=== PATIENT | female | born 1990 | race Caucasian/White ===

== ENCOUNTER → 2020-04-24 22:45 | Observation (INO) | END | disposition home or self-care (01) | LOC: 1NENULAB | PROVIDERS: ADMIT Obstetrics & Gynecology; ATTEND Obstetrics & Gynecology ==

== ENCOUNTER 2022-05-14 03:57 | Inpatient (IN) ==
[2022-05-14] MEDS ORDERED: Penicillin G Potassium 5,000,000 UNIT in 0.9 % Sodium Chloride Mini Bag 100 ML IVPB ONE (04:40)
[2022-05-14] MEDS ORDERED: Ringers Solution, Lactated 1,000 ML IVC SCH (04:45)
[2022-05-14] MEDS ORDERED: Ondansetron 4 MG/2 ML VIAL IVP PRN (04:56)
[2022-05-14] MEDS ORDERED: Metoclopramide 10 MG/2 ML VIAL IVP PRN (04:56)
[2022-05-14] MEDS ORDERED: Famotidine 20 MG/2 ML VIAL IVP PRN (04:56)
[2022-05-14] MEDS ORDERED: Naloxone 0.4 MG/ML INJ IVP PRN (04:56)
[2022-05-14 05:35] LABS: Amphetamine Screen,Urine Negative ng/mL (Cutoff=1000); Barbiturate Screen,Urine Negative ng/mL (Cutoff=200); Benzodiazepines Screen,Urine Negative ng/mL (Cutoff=200); Cannabinoid Screen,Urine Negative ng/mL (Cutoff = 50); Cocaine Screen,Urine Negative ng/mL (Cutoff= 300); Opiate Screen,Urine Negative ng/mL (Cutoff=300); Phencyclidine Screen,Urine Negative ng/mL (Cutoff=25)
[2022-05-14 05:45] LABS: White Blood Count 8.3 K/mcL (4.3-11.1)
[2022-05-14 05:46] LABS: Basophils % 0.4 %; Eosinophils % 0.4 %; Hematocrit 34.7 % (35.3-44.9); Hemoglobin 11.1 g/dL (11.5-15.4); Immature Granulocytes % 0.4 % (0-4); Lymphocytes # 2.1 K/mcL (0.6-4.6); Mean Corpuscular Hemoglobin 25.3 pg (28.0-33.3); Mean Corpuscular Volume 79.2 fL (83.0-100.0); Mean Platelet Volume 11.4 fL (9.4-12.4); Monocytes # 0.3 K/mcL (0.0-1.3); Neutrophils # 5.9 K/mcL (1.6-8.9); Platelet Count 251 K/mcL (140-400); Red Blood Count 4.38 M/mcL (3.82-4.97); Segmented Neutrophils % 70.8 %
[2022-05-14] MEDS ORDERED: Oxytocin 30 UNIT/503 ML BAG IVC SCH ×2 (07:30→15:40)
[2022-05-14] MEDS ORDERED: Penicillin G Potassium 2,500,000 UNIT/105 ML MLS IVPB SCH (09:00)
[2022-05-14] MEDS ORDERED: EPHEDrine 50 MG/ML VIAL IVP PRN (09:46)
[2022-05-14] MEDS ORDERED: *HR* FentaNYL (PF) 100 MCG/2 ML VIAL EP ONE (09:46)
[2022-05-14] MEDS ORDERED: Ropivacaine/PF 0.2% 20 ML VIAL EP ONE (09:46)
[2022-05-14] MEDS ORDERED: Ropivacaine/PF 0.2% 20 ML VIAL ONE (09:49)
[2022-05-14] MEDS ORDERED: *HR* FentaNYL (PF) 100 MCG/2 ML VIAL ONE (09:49)
[2022-05-14] MEDS ORDERED: Epidural Premix (fent/bupiv) 110 ML EP SCH (10:00)
[2022-05-14] MEDS ORDERED: Lanolin 7 G OINT...G. TP PRN (15:40)
[2022-05-14] MEDS ORDERED: Ondansetron ODT 4 MG TAB.RAPDIS SL PRN (15:40)
[2022-05-14] MEDS ORDERED: Benzocaine/Menthol 56 GM AEROSOL SPRAY TP PRN (15:40)
[2022-05-14] MEDS ORDERED: Measles/Mumps/Rubella Vacc 0.5 ML VIAL SQ PRN (15:40)
[2022-05-14] MEDS: Acetaminophen 325 MG TABLET PO SCH (21:32)
[2022-05-14] MEDS: Ibuprofen 600 MG TABLET PO SCH (21:32)
[2022-05-14 21:50] VITALS: O2SAT 99
[2022-05-15] MEDS: Acetaminophen 325 MG TABLET PO SCH (03:23)
[2022-05-15] MEDS: Ibuprofen 600 MG TABLET PO SCH (03:23)
[2022-05-15 03:52] LABS: Basophils % 0.4 %; Eosinophils # 0.1 K/mcL (0.0-0.6); Eosinophils % 0.8 %; Hematocrit 32.5 % (35.3-44.9); Hemoglobin 10.4 g/dL (11.5-15.4); Immature Granulocytes % 0.4 % (0-4); Lymphocytes # 2.8 K/mcL (0.6-4.6); Lymphocytes % 31.4 %; Mean Corpuscular Hemoglobin 25.5 pg (28.0-33.3); Mean Corpuscular Volume 79.7 fL (83.0-100.0); Mean Platelet Volume 11.2 fL (9.4-12.4); Monocytes # 0.3 K/mcL (0.0-1.3); Monocytes % 3.8 %; Neutrophils # 5.6 K/mcL (1.6-8.9); Platelet Count 232 K/mcL (140-400); Red Blood Count 4.08 M/mcL (3.82-4.97); Red Cell Distribution Width 13.3 % (11.5-14.5); Segmented Neutrophils % 63.2 %; White Blood Count 8.9 K/mcL (4.3-11.1)
[2022-05-15] MEDS ORDERED: Levothyroxine 25 MCG TABLET PO SCH (06:30)
[2022-05-15 07:35] VITALS: BP 116/64; PULSE 66; TEMP 97.8
[2022-05-15] MEDS ORDERED: Prenatal Vit/FA 1 EACH TABLET PO SCH (09:00)
[2022-05-15] MEDS ORDERED: NON-FORMULARY MEDICATION 1 EACH EACH (Pnv No.95/Ferrous Fum/Folic Ac [Prenatal Caplet] 1 E PO SCH (09:00)
== END 2022-05-15 13:12 | disposition home or self-care (01) | DRG 560 ==
LOC: 1NENULAB 03:57 → 1NENUOBS 15:35
PROVIDERS: ADMIT Obstetrics & Gynecology; ATTEND Obstetrics & Gynecology